=== PATIENT | female | born 1995 | race American Indian/Alaskan Native ===

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

== ENCOUNTER 2017-10-15 10:33 | Emergency (ER) | payer OTHER ==
[2017-10-15 11:07] VITALS: BP 101/70
--- NOTE | 2017-10-15 12:33 | EDM.PDOC ---
ED HPI GENERAL MEDICAL PROBLEM - General Chief Complaint: Abdominal Pain Stated Complaint: ABDOMINAL PAIN [id number] Time Seen by Provider: 10/15/17 11:51 Source of Information: Reports: Patient, RN, RN Notes Reviewed History Limitations: Reports: No Limitations - History of Present Illness INITIAL COMMENTS - FREE TEXT/NARRATIVE: Pt to Er with c/o RLQ pain, dull 3/10 "menstrual like pain". Pt states pain has been for the past few days, getting worse. Pt states she is concerned that it is her appendix. She admits to burning with urination, chills, nausea, indigestion, diarrhea. Denies fever. Onset: Gradual Lower Abdominal Pain Score (Numeric/FACES): 3 - Related Data Allergies Allergy/AdvReac Type Severity Reaction Status Date / Time No Known Allergies Allergy Verified 10/15/17 10:42 Home Meds: Home Meds . 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 Musculoskeletal History: Reports: None Neurological History: Reports: None Psychiatric History: Reports: None Endocrine/Metabolic History: Reports: None Hematologic History: Reports: None Immunologic History: Reports: None Oncologic (Cancer) History: Reports: None Dermatologic History: Reports: None - Infectious Disease History Infectious Disease History: Reports: None - Past Surgical History HEENT Surgical History: Reports: None Cardiovascular Surgical History: Reports: None Respiratory Surgical History: Reports: None GI Surgical History: Reports: None Female Surgical History: Reports: None Endocrine Surgical History: Reports: None Neurological Surgical History: Reports: None Musculoskeletal Surgical History: Reports: None Dermatological Surgical History: Reports: None Social & Family History - Family History Family Medical History: Noncontributory - Tobacco Use Smoking Status *Q: Current Every Day Smoker Years of Tobacco use: 3 Packs/Tins Daily: 0.5 - Caffeine Use Caffeine Use: Reports: Tea - Living Situation & Occupation Living situation: Reports: with Family Occupation: Student ED ROS GENERAL - Review of Systems Review Of Systems: ROS reveals no pertinent complaints other than HPI. ED EXAM, RENAL/ - Physical Exam Exam: See Below Exam Limited By: No Limitations General Appearance: Alert, WD/WN, No Apparent Distress Eye Exam: Bilateral Eye: EOMI, Normal Inspection Ears: Normal External Exam, Hearing Grossly Normal Nose: Normal Inspection Throat/Mouth: Normal Inspection, Normal Voice, No Airway Compromise Head: Atraumatic, Normocephalic Neck: Normal Inspection, Supple, Non-Tender, Full Range of Motion Respiratory/Chest: No Respiratory Distress, Lungs Clear, Normal Breath Sounds, No Accessory Muscle Use, Chest Non-Tender Cardiovascular: Normal Peripheral Pulses, Regular Rate, Rhythm, No Edema, No Gallop, No JVD, No Murmur, No Rub GI/Abdominal: Normal Bowel Sounds, Soft, No Organomegaly, No Distention, No Abnormal Bruit, No Mass, Tender (LLQ, RLQ (worse)) (Female) Exam: Deferred Rectal (Female) Exam: Deferred Back Exam: Normal Inspection, Full Range of Motion, CVA Tenderness (L), CVA Tenderness (R) Extremities: Normal Inspection, Normal Range of Motion, Non-Tender, Normal Capillary Refill, No Pedal Edema Neurological: Alert, Oriented, CN II-XII Intact, Normal Cognition, Normal Gait, Normal Reflexes, No Motor/Sensory Deficits Psychiatric: Normal Affect, Normal Mood Skin Exam: Warm, Dry, Intact, Normal Color, No Rash Lymphatic: No Adenopathy Course - Vital Signs Last Recorded V/S: Last Vital Signs Temp 97.6 F 10/15/17 10:36 Pulse 94 10/15/17 10:36 Resp 16 10/15/17 10:36 BP 101/70 10/15/17 10:36 Pulse Ox 98 10/15/17 10:36 - Orders/Labs/Meds Orders: Active Orders 24 hr Category Date Time Status HCG QUALITATIVE,URINE [URCHEM] Stat Lab 10/15/17 10:41 Ordered Labs: Laboratory Tests 10/15/17 10/15/17 10/15/17 Range/Units 10:41 10:41 12:08 WBC 8.3 (5.0-10.0) 10^3/uL RBC 4.75 (4.2-5.4) 10^6/uL Hgb 13.5 (12.0-16.0) g/dL Hct 42.0 (37.0-47.0) % MCV 88.4 (80-100) fL MCH 28.4 (27.0-34.0) pg MCHC 32.1 L (33.0-35.0) g/dL Plt Count 346 (150-450) 10^3/uL Neut % (Auto) 72.9 (42.2-75.2) % Lymph % (Auto) 13.7 L (20.5-50.1) % [place] % (Auto) 10.1 H (2-8) % Eos % (Auto) 2.9 (1.0-3.0) % Baso % (Auto) 0.4 (0.0-1.0) % Sodium (135-145) mmol/L Potassium (3.6-5.0) mmol/L Chloride (101-111) mmol/L Carbon Dioxide (21.0-31.0) mmol/L Anion Gap BUN (7-18) mg/dL Creatinine (0.6-1.3) mg/dL Est Cr Clr Drug Dosing mL/min Estimated GFR (MDRD) BUN/Creatinine Ratio Glucose (74-105) mg/dL Calcium (8.4-10.2) mg/dl Total Bilirubin (0.2-1.0) mg/dL AST (10-42) IU/L ALT (10-60) IU/L Alkaline Phosphatase (42-121) IU/L Total Protein (6.7-8.2) g/dl Albumin (3.2-5.5) g/dl Globulin Albumin/Globulin Ratio Amylase (28-100) U/L Lipase (22-51) U/L Urine Color Yellow (YELLOW) Urine Appearance Clear (CLEAR) Urine pH 5.5 (5.0-9.0) Ur Specific [place] 1.025 (1.005-1.030) Urine Protein Negative (NEGATIVE) Urine Glucose (UA) Negative (NEGATIVE) Urine Ketones Negative (NEGATIVE) Urine Occult Blood Trace-intact H (NEGATIVE) Urine Nitrite Negative (NEGATIVE) Urine Bilirubin Negative (NEGATIVE) Urine Urobilinogen 0.2 (0.2-1.0) mg/dL Ur Leukocyte Esterase Moderate H (NEGATIVE) Urine RBC 5-10 H /HPF Urine WBC 20-30 H (0-5/HPF) /HPF Ur Epithelial Cells Moderate H /HPF Urine Bacteria Moderate H (0-FEW/HPF) /HPF Urine Mucus Few H /LPF Urine HCG, Qual Negative 10/15/17 Range/Units 12:08 WBC (5.0-10.0) 10^3/uL RBC (4.2-5.4) 10^6/uL Hgb (12.0-16.0) g/dL Hct (37.0-47.0) % MCV (80-100) fL MCH (27.0-34.0) pg MCHC (33.0-35.0) g/dL Plt Count (150-450) 10^3/uL Neut % (Auto) (42.2-75.2) % Lymph % (Auto) (20.5-50.1) % [place] % (Auto) (2-8) % Eos % (Auto) (1.0-3.0) % Baso % (Auto) (0.0-1.0) % Sodium 140 (135-145) mmol/L Potassium 4.4 (3.6-5.0) mmol/L Chloride 107 (101-111) mmol/L Carbon Dioxide 25.0 (21.0-31.0) mmol/L Anion Gap 12.4 BUN 10 (7-18) mg/dL Creatinine 0.6 (0.6-1.3) mg/dL Est Cr Clr Drug Dosing 135.70 mL/min Estimated GFR (MDRD) > 60 BUN/Creatinine Ratio 16.66 Glucose 91 (74-105) mg/dL Calcium 8.9 (8.4-10.2) mg/dl Total Bilirubin 0.4 (0.2-1.0) mg/dL AST 16 (10-42) IU/L ALT 14 (10-60) IU/L Alkaline Phosphatase 67 (42-121) IU/L Total Protein 7.4 (6.7-8.2) g/dl Albumin 4.2 (3.2-5.5) g/dl Globulin 3.2 Albumin/Globulin Ratio 1.31 Amylase 48 (28-100) U/L Lipase 31 (22-51) U/L Urine Color (YELLOW) Urine Appearance (CLEAR) Urine pH (5.0-9.0) Ur Specific [place] (1.005-1.030) Urine Protein (NEGATIVE) Urine Glucose (UA) (NEGATIVE) Urine Ketones (NEGATIVE) Urine Occult Blood (NEGATIVE) Urine Nitrite (NEGATIVE) Urine Bilirubin (NEGATIVE) Urine Urobilinogen (0.2-1.0) mg/dL Ur Leukocyte Esterase (NEGATIVE) Urine RBC /HPF Urine WBC (0-5/HPF) /HPF Ur Epithelial Cells /HPF Urine Bacteria (0-FEW/HPF) /HPF Urine Mucus /LPF Urine HCG, Qual Departure - Departure Time of Disposition: 12:31 Disposition: Home, Self-Care 01 Condition: Fair Clinical Impression: UTI (urinary tract infection) Qualifiers: Urinary tract infection type: acute cystitis Hematuria presence: with hematuria Qualified Code(s): N30.01 - Acute cystitis with hematuria - Discharge Information *PRESCRIPTION DRUG MONITORING PROGRAM REVIEWED*: No *COPY OF PRESCRIPTION DRUG MONITORING REPORT IN PATIENT ENZO: No Instructions: Urinary Tract Infection, Adult, [id number] Referrals: PCP,None [Primary Care Provider] - Forms: ED Department Discharge Additional Instructions: RX: Macrobid Follow up with your primary care facility for recheck of the urine - My Orders Last 24 Hours: My Active Orders 10/15/17 10:41 HCG QUALITATIVE,URINE [URCHEM] Stat - Assessment/Plan Last 24 Hours: My Active Orders 10/15/17 10:41 HCG QUALITATIVE,URINE [URCHEM] Stat
[2017-10-15 12:34] LABS: ANION GAP 12.4; CHLORIDE,CL 107 mmol/L (101-111); SODIUM,NA 140 mmol/L (135-145)
== END 2017-10-15 12:45 | disposition home or self-care (01) ==
LOC: DL.ED 10:33
DX: N30.01 Acute cystitis with hematuria (principal); F17.210 Nicotine dependence, cigarettes, uncomplicated
CPT/HCPCS: 36415; 80053; 81001; 81025; 82150; 83690; 85025; 99284

== ENCOUNTER 2022-06-24 20:48 | Emergency (ER) | payer OTHER ==
[2022-06-24 21:14] VITALS: BP 137/82; PULSE 100
[2022-06-24] MEDS ORDERED: Clindamycin HCl 150 MG Cap PO ONE (21:37)
[2022-06-24] MEDS ORDERED: Sulfamethoxazole/Trimethoprim 800-160 MG Tab PO ONE (21:37)
[2022-06-24] MEDS ORDERED: Ketorolac 30 MG/ML SDV IM ONE (21:37)
== END 2022-06-24 22:03 | disposition home or self-care (01) ==
LOC: DL.ED 20:48
DX: L05.91 Pilonidal cyst without abscess (principal)
CPT/HCPCS: 96372; 99283; A9270; J1885

== ENCOUNTER 2024-12-19 10:26 | Inpatient (IN) | payer MEDICAID ==
[~2024-12-19 10:26] MED LIST: Carboprost Tromethamine 250 MCG/1 ML Amp IM PRN
[2024-12-19] MEDS: Misoprostol 50 MCG (1/2 of 100 MCG) Tab VAG SCH (12:00)
[2024-12-19] MEDS ORDERED: Sodium Chloride 0.9% 10 ML Syringe FLUSH PRN (12:01)
[2024-12-19] MEDS ORDERED: Oxytocin/Lactated Ringers 30 UNIT/500 ML BAG IV SCH (12:01)
[2024-12-19] MEDS ORDERED: Carboprost Tromethamine 250 MCG/1 ML Amp IM PRN (12:01)
[2024-12-19 12:10] LABS: PLATELET COUNT,PLT 308.0 10^3/uL (150-450); RED BLOOD CELL COUNT 4.76 10^6/uL (4.2-5.4); WHITE BLOOD CELL COUNT,WBC 9.4 10^3/uL (5.0-10.0)
[2024-12-19] MEDS: Penicillin G Potassium 5 MILLUNITS in Sodium Chloride 0.9% 100 ML IV ONE (12:26)
[2024-12-19] MEDS: Penicillin G Potassium 3 MILLUNITS in Sodium Chloride 0.9% 100 ML IV SCH (12:51)
[2024-12-19] MEDS: Misoprostol 25 MCG (1/4 of 100 MCG) Tab VAG PRN (16:10)
[2024-12-20] MEDS ORDERED: Penicillin G Potassium 3 MILLUNITS in Sodium Chloride 0.9% 100 ML IV SCH (00:01)
[2024-12-20] MEDS ORDERED: Ondansetron 4 MG/2 ML SDV IVPUSH PRN (00:01)
[2024-12-20] MEDS ORDERED: Lactated Ringers 1,000 ML IV SCH (00:01)
[2024-12-20] MEDS ORDERED: Misoprostol 25 MCG (1/4 of 100 MCG) Tab VAG PRN (00:01)
[2024-12-20] MEDS ORDERED: Misoprostol 50 MCG (1/2 of 100 MCG) Tab VAG SCH (00:01)
[2024-12-20] MEDS ORDERED: Oxytocin/Lactated Ringers 30 UNIT/500 ML BAG IV SCH (00:01)
[2024-12-20] MEDS ORDERED: Lactated Ringers 1,000 ML IV ONE (00:01)
[2024-12-20] MEDS ORDERED: Sodium Chloride 0.9% 10 ML Syringe FLUSH PRN ×2 (00:01→10:39)
[2024-12-20] MEDS ORDERED: Penicillin G Potassium 5 MILLUNITS in Sodium Chloride 0.9% 100 ML IV ONE (00:01)
[2024-12-20] MEDS ORDERED: fentaNYL 100 MCG/2 ML SDV IVPUSH PRN (00:38)
[2024-12-20] MEDS: Ondansetron 4 MG/2 ML SDV IVPUSH PRN (01:37)
[2024-12-20] MEDS: fentaNYL 100 MCG/2 ML SDV IVPUSH PRN (02:47)
[2024-12-20] MEDS: Lactated Ringers 1,000 ML IV SCH (02:53)
[2024-12-20] MEDS: Oxytocin/Normal Saline 30 UNIT/500 ML BAG IV SCH (02:54)
[2024-12-20] MEDS: Lactated Ringers 1,000 ML IV ONE (03:58)
[2024-12-20] MEDS ORDERED: Carboprost Tromethamine 250 MCG/1 mL Vial IM PRN (10:39)
[2024-12-20] MEDS ORDERED: Oxytocin 10 Units/1 ML SDV IM PRN (10:39)
[2024-12-20] MEDS: Benzocaine/Menthol 20%-0.5% Spray 78 GM Cannister TOP PRN (11:03)
[2024-12-20] MEDS: Witch Hazel Medicated Pads 100/Jar TOP PRN (11:04)
[2024-12-20] MEDS: Misoprostol 400 MCG (4 X 100 MCG TAB) ONE (11:10)
[2024-12-21 06:25] LABS: PLATELET COUNT,PLT 264.0 10^3/uL (150-450); RED BLOOD CELL COUNT 4.22 10^6/uL (4.2-5.4); WHITE BLOOD CELL COUNT,WBC 12.0 10^3/uL (5.0-10.0)
[2024-12-21] MEDS: Prenatal Multivitamin with Calcium/Folic Acid/Iron Tab PO SCH (08:24)
[2024-12-21] MEDS: Measles, Mumps & Rubella Vaccine 0.5 ML SDV SUBCUT ONE ×2 (09:29→14:05)
[2024-12-22 15:03] VITALS: BP 123/75; PULSE 95
== END 2024-12-22 13:25 | disposition home or self-care (01) | DRG 807 ==
LOC: DL.OB 10:26 → OBSVTOIN 12-20 10:26 → DL.MS 12-21 09:15
PROVIDERS: ADMIT Family Medicine; ATTEND Family Medicine
PROC: 10E0XZZ Delivery of Products of Conception, External Approach (ICD-10-PCS; principal; 2024-12-20)
PROC: 10907ZC Drainage of Amniotic Fluid, Therapeutic from Products of Conception, Via Natural or Artificial Opening (ICD-10-PCS; 2024-12-20)
PROC: 3E033VJ Introduction of Other Hormone into Peripheral Vein, Percutaneous Approach (ICD-10-PCS; 2024-12-20)
PROC: 0UQGXZZ Repair Vagina, External Approach (ICD-10-PCS; 2024-12-20)
PROC: 3E03329 Introduction of Other Anti-infective into Peripheral Vein, Percutaneous Approach (ICD-10-PCS; 2024-12-20)
PROC: 3E0234Z Introduction of Serum, Toxoid and Vaccine into Muscle, Percutaneous Approach (ICD-10-PCS; 2024-12-20)
DX: O99.824 Streptococcus B carrier state complicating childbirth (principal); Z37.0 Single live birth; O99.814 Abnormal glucose complicating childbirth; O69.81X0 Labor and delivery complicated by cord around neck, without compression, not applicable or unspecified; O71.4 Obstetric high vaginal laceration alone; Z23 Encounter for immunization; Z3A.39 39 weeks gestation of pregnancy
CPT/HCPCS: 36415; 51702; 59409; 85027; 90471; 90707; A9270-GY; J2405; J2540; J2590; J3010; J7120